=== PATIENT | male | born 1950 | race Caucasian/White ===

== ENCOUNTER 2018-01-10 07:14 | Day surgery (SDC) | payer OTHER ==
[2018-01-06 09:15] VITALS: BMI 27.1
[2018-01-10] MEDS ORDERED: LIDOCAINE HCL/PF 2% SDV 5ML VIAL ONE (07:41)
[2018-01-10] MEDS ORDERED: PROPOFOL 20 ML ONE ×2 (07:41)
[2018-01-10 09:13] VITALS: TEMP 97.9
[2018-01-10 09:37] VITALS: BP 134/78; PULSE 70
--- NOTE | 2018-01-11 17:05 | PATH ---
Surgical Pathology Report Patient Name: HAROON SALGADO [facility]. Rec. #: [id number] /Age/Gender: 1950 (Age: 67) / M Account: [id number] Location: [facility]-ENDOSCOPY Taken: 01/10/2018 Received: 01/10/2018 Reported: 01/11/2018 Physicians: Silviano Montes De Oca M.D. Specimen(s) Received A: BX CECUM B: LEFT COLON C: PROXIMAL SIGMOID D: DISTAL SIGMOID Clinical History History of polyps Postoperative diagnosis: Polyps Final Diagnosis A. CECUM, POLYPECTOMY: TUBULAR ADENOMA. B. LEFT COLON, POLYPECTOMY: TUBULAR ADENOMA. C. PROXIMAL SIGMOID, POLYPECTOMY: HYPERPLASTIC POLYP. D. DISTAL SIGMOID, POLYPECTOMY: TUBULAR ADENOMA. Electronically Signed Jacqueline Kulkarni M.D. Gross Description A. Received in formalin, labeled "cecum" is a mullins, irregular portion of soft tissue measuring 1.0 cm. in greatest dimension. The specimen is submitted in toto in one cassette. B. Received in formalin, labeled "left colon" are 2 mullins, irregular portions of soft tissue measuring 0.6 and 1.0 cm. in greatest dimension. The specimens are submitted in toto in one cassette. C. Received in formalin, labeled "proximal sigmoid" is a mullins, irregular portion of soft tissue measuring 0.8 cm. in greatest dimension. The specimen is submitted in toto in one cassette. D. Received in formalin, labeled "distal sigmoid" are 2 mullins, irregular portions of soft tissue measuring 0.4 and 1.0 cm. in greatest dimension. The specimens are submitted in toto in one cassette. 01/10/2018 saudi01/10/2018
== END 2018-01-10 09:37 | disposition home or self-care (01) ==
LOC: FASU-ENDO 07:14
PROVIDERS: ATTEND Internal Medicine Gastroenterology
PROC: 0DBM8ZX Excision of Descending Colon, Via Natural or Artificial Opening Endoscopic, Diagnostic (ICD-10-PCS; 2018-01-10)
PROC: 0DBH8ZX Excision of Cecum, Via Natural or Artificial Opening Endoscopic, Diagnostic (ICD-10-PCS; principal; 2018-01-10 08:33)
PROC: 0DBN8ZX Excision of Sigmoid Colon, Via Natural or Artificial Opening Endoscopic, Diagnostic (ICD-10-PCS; 2018-01-10 08:33)
DX: Z86.010 Personal history of colon polyps (principal); Z80.0 Family history of malignant neoplasm of digestive organs; K57.30 Diverticulosis of large intestine without perforation or abscess without bleeding; D12.0 Benign neoplasm of cecum; D12.4 Benign neoplasm of descending colon; D12.5 Benign neoplasm of sigmoid colon
CPT/HCPCS: 88305-TC

== ENCOUNTER 2022-09-08 16:14 | Inpatient (IN) | payer OTHER ==
[2022-09-08] MEDS ORDERED: ALBUTEROL SO4 2.5/IPRATROPIUM 0.5 INH SOL 3 ML VIAL.NEB. NEB ONE ×2 (16:47→16:55)
[2022-09-08 17:31] VITALS: BP 190/112; RESP 24; TEMP 98.4; BMI 28.7
[2022-09-08] MEDS ORDERED: methylPREDNISolone NA SUCC 125 MG/2 ML VIAL IVPB ONE (17:33)
[2022-09-08 17:36] LABS: BASO % 0.2 % (0-2.0); HEMATOCRIT 47.5 % (35.4-49); HEMOGLOBIN 16.2 GM/dL (11.7-16.9); LYMPH % 9.6 % (8-40); MCH 31.5 pg (25.7-33.7); MCHC 34.1 g/dl (32.0-35.9); MEAN CELL VOLUME 92.5 fl (80-96); MEAN PLT VOLUME 10.3 fl (7.5-11.1); MONO % 10.5 % (3.8-10.2); NEUT % 79.7 % (42.8-82.8); PLATELET COUNT 187 10^3/uL (134-434); RBC 5.14 M/mm3 (4.00-5.60); RDW 13.7 % (11.9-15.9); WHITE BLOOD COUNT 10.9 K/mm3 (4.0-10.0)
[2022-09-08 17:39] LABS: INR 1.15 (0.83-1.09); PROTHROMBIN TIME (PATIENT) 13.2 SEC (9.7-13.0)
[2022-09-08 17:42] LABS: ACTIVATED PTT 34.9 SECONDS (25.2-36.5)
[2022-09-08 17:46] LABS: VENOUS BASE EXCESS -1.6 mmol/L (-2-2); VENOUS O2 SATURATION 52.4 % (70-80); VENOUS PCO2 40.9 mmHg (38-52); VENOUS PH 7.377 (7.310-7.410)
[2022-09-08 17:58] LABS: CALCIUM 9.1 mg/dL (8.5-10.1)
[2022-09-08 17:59] LABS: ALBUMIN 3.5 g/dl (3.4-5.0); BLOOD UREA NITROGEN 9.7 mg/dL (7-18); MAGNESIUM 2.1 mg/dL (1.8-2.4)
[2022-09-08 18:02] LABS: CREATININE 0.8 mg/dL (0.55-1.3)
[2022-09-08 18:03] LABS: BILIRUBIN,TOTAL 0.9 mg/dL (0.2-1); TOT PROT 7.3 g/dl (6.4-8.2)
[2022-09-08 18:07] LABS: N-TERMINAL BNP 2326.8 pg/ml (5-125)
[2022-09-08] MEDS ORDERED: methylPREDNISolone NA SUCC 125 MG/2 ML VIAL ONE (18:08)
[2022-09-08] MEDS ORDERED: FUROSEMIDE 40 MG/4 ML INJECTABLE VIAL IVPUSH ONE (18:21)
[2022-09-08] MEDS ORDERED: FUROSEMIDE 40 MG/4 ML INJECTABLE VIAL ONE (18:36)
[2022-09-08 20:51] VITALS: PULSE 89
== END 2022-09-08 20:52 | disposition left against medical advice (07) | DRG 191 ==
LOC: JER 16:14 → JERBED 18:21
PROVIDERS: ADMIT Internal Medicine; ATTEND Internal Medicine
DX: J44.1 Chronic obstructive pulmonary disease with (acute) exacerbation (principal); J21.0 Acute bronchiolitis due to respiratory syncytial virus; I50.9 Heart failure, unspecified; I10 Essential (primary) hypertension; E78.5 Hyperlipidemia, unspecified; K21.9 Gastro-esophageal reflux disease without esophagitis
CPT/HCPCS: 0241U-QW; 36415; 71045-TC-FY; 80053; 82803; 83735; 83880; 84484; 85025; 85610; 85730; 99285-25